=== PATIENT | female | born 1980 | race Caucasian/White ===

== ENCOUNTER 2024-12-23 11:34 | Emergency (ER) | payer MEDICAID, SELFPAY ==
[2024-12-23 11:52] VITALS: BP 159/98; PULSE 102; RESP 18; TEMP 37.1; O2SAT 98; BMI 31.7
--- NOTE | 2024-12-23 12:02 | EDRME_ITS ---
Rapid Medical Screening Exam [facility] Arrival date/time: 12/23/24 11:34 44-year-old female who is homeless presents to the emergency department today for complaints of frothy urine. Patient reports no fever nausea vomiting. Patient reports that she is diabetic but does not take any of her medication currently blood sugar is 410 Chief Complaint: Urogenital-Female Time Seen by Provider: 12/23/24 11:55 Vital signs: Vital Signs Temperature 98.8 F 12/23/24 11:52 Pulse Rate 102 H 12/23/24 11:52 Respiratory Rate 18 12/23/24 11:52 Blood Pressure 159/98 H 12/23/24 11:52 Pulse Oximetry (%) 98 12/23/24 11:52 Oxygen Delivery Method Room Air 12/23/24 11:52
[2024-12-23 12:26] LABS: Base Excess, Venous 0 (-3-3); O2 Saturation, Venous 81 % (96-97); PCO2, Venous 37 mmHg (36-56); PO2, Venous 41 mmHg (15-58); pH, Venous 7.42 (7.33-7.66)
[2024-12-23 12:29] LABS: Basophils # (Auto) 0.1 Thou/mm3 (0.0-0.2); Basophils % (Auto) 1 % (0-2.5); Eosinophils # (Auto) 0.3 Thou/mm3 (0.0-0.5); Eosinophils % (Auto) 2 % (0-10); Hematocrit 39.1 % (36.0-46.0); Hemoglobin 13.4 g/dL (12.0-16.0); Immature Granulocytes % (Auto) 0 % (0-0); Immature Granulocytes Auto 0.05 Thou/mm3 (0.00-0.00); Lymphocytes # (Auto) 3.4 Thou/mm3 (1.0-4.8); Lymphocytes % (Auto) 27 % (10-50); Mean Corpuscular HGB Conc 34.3 g/dl (31.0-37.0); Mean Corpuscular Hemoglobin 28.7 pg (25.0-35.0); Mean Corpuscular Volume 84 fL (80-100); Monocytes # (Auto) 0.6 Thou/mm3 (0.0-0.8); Monocytes % (Auto) 5 % (0-12); Neutrophils % (Auto) 65 % (37-80); Nucleated Red Blood Cell % 0 /100 WBC (0); Platelet Count 353 Thou/mm3 (140-440); RDW Standard Deviation 42.3 fL (36.4-46.3); Red Blood Count 4.67 Miln/mm3 (4.00-5.20); White Blood Count 12.4 Thou/mm3 (3.6-11.0)
[2024-12-23 12:39] LABS: Glucose Estimated Average 335 mg/dL (80-131); Hemoglobin A1C 13.3 % Hgb (4.8-6.0)
[2024-12-23 12:53] LABS: Alanine Aminotransferase 18 U/L (10-49); Albumin, Serum 3.5 gm/dL (3.5-5.0); Albumin/Globulin Ratio 1.2 (1.2-2.2); Alkaline Phosphatase 166 U/L (46-116); Anion Gap 8 (7-16); Aspartate Amino Transferase 12 U/L (0-34); BUN/Creatinine Ratio 9 Ratio (12-20); Bilirubin,Total 0.3 mg/dL (0.3-1.2); Blood Urea Nitrogen 13 mg/dL (9-23); Calcium 9.1 mg/dL (8.3-10.6); Calcium (Corrected) 9.5 mg/dL (8.5-10.1); Chloride 100 mMol/L (98-107); Creatinine (Component) 1.4 mg/dL (0.6-1.3); Estimated Creatinine Clearance 52.6 mL/min (>60); Globulin 2.9 gm/dL (2.3-3.5); Glucose 399 mg/dL (74-106); Osmolality,Calculated 285 (275-295); Potassium 4.2 mMol/L (3.4-5.1); Sodium 134 mMol/L (136-145); Total Protein 6.4 gm/dL (5.7-8.2); eGFR 47 See Note
[2024-12-23 13:38] LABS: Collection Type, Urine Clean Catch
[2024-12-23 13:59] LABS: Bacteria,Urine 1+; Bilirubin,Urine Negative (Negative); Blood,Urine Trace (Negative); Clarity,Urine Clear (Clear/Hazy); Color,Urine Colorless (Lt Yel-Yel); Glucose, Urine 4+ (Negative); Ketones,Urine Negative (Negative); Leukocyte Esterase,Urine Positive (Negative); Nitrite,Urine Positive (Negative); Protein,Urine 1+ (Neg - Trace); RBC,Urine 11 /hpf (0-3); Specific Gravity,Urine 1.019 (1.001-1.035); Squamous Epithelial Cell,Urine < 1 /hpf (0-5); Urobilinogen,Urine Negative mg/dL (0.0-1.0); WBC,Urine 10 /hpf (0-5)
[2024-12-23 14:10] LABS: Culture Indicated,Urine Yes
[2024-12-23 14:13] LABS: Amphetamine/Methamp Scrn,U Positive (Negative); Barbiturate Screen,Urine Negative (Negative); Benzodiazepines Screen,Urine Negative (Negative); Benzoylecgonine Screen, Ur Negative (Negative); Fentanyl Screen,Urine Negative (Negative); Opiate Screen,Urine Negative (Negative); THC Screen,Urine Negative (Negative)
--- NOTE | 2024-12-23 16:32 | PD.EDFMALE ---
ED Female Urogenital RME/HPI General Chief complaint: Urogenital-Female Stated complaint: Foam in urine, tired Time Seen by Provider: 12/23/24 11:55 Arrival date/time: 12/23/24 11:34 RME / HPI RME / HPI Narrative: 44-year-old female who is homeless presents to the emergency department today for complaints of frothy urine. Patient reports no fever nausea vomiting. Patient reports that she is diabetic but does not take any of her medication currently blood sugar is 410. Patient denies any vomiting denies any other complaints. Related Data Previous Rx's ?Medication ?Instructions ?Recorded atorvastatin 40 mg tablet 40 mg PO HS cholesterol 30 days 11/17/23 #30 tabs blood-glucose sensor (FreeStyle #2 ea 11/17/23 Tanya 3 Sensor device) blood-glucose,yarn weight and strength tester,cont #2 ea 11/17/23 (FreeStyle Tanya 3 [place]) insulin degludec 100 unit/mL (3 30 unit (0.3 mL) subcut QPM type 2 11/17/23 mL) subcutaneous pen (Tresiba diabetes #15 mL FlexTouch U-100 insulin) levothyroxine 125 mcg capsule 125 mcg PO ACBR hypothyroidism 30 11/17/23 days #30 caps losartan 50 mg tablet 50 mg PO QDAY high blood pressure 11/17/23 30 days #30 tabs melatonin 3 mg tablet 3 mg PO HS sleep 1 month #30 tabs 11/17/23 nicotine 7 mg/24 hr daily 7 mg topical DAILY PRN Nicotine 11/17/23 transdermal patch withdrawal #14 ea pen needle, diabetic 31 gauge x #100 ea 11/17/23/ (Comfort EZ Pen [place]) cephalexin 500 mg capsule 500 mg PO Q8H 7 days #21 caps 12/23/24 metformin 500 mg tablet 500 mg PO BIDWMEAL #60 tabs 12/23/24 Allergies Allergy/AdvReac Type Severity Reaction Status Date / Time No Known Allergies Allergy Verified 12/23/24 11:37 Review of Systems Review of Systems Narrative Review of Systems: Review of system reviewed and within normal limits except mentioned in HPI ED Exam Narrative Physical exam: VITAL SIGNS: Reviewed. GENERAL APPEARANCE: Alert and interactive, follows commands, no acute distress, HEAD AND FACE: Non-traumatic. ENT: PERRL, pink conjunctivitis, eyelid no trauma, Mucous membrane moist. NECK: Supple, nontender, no nuchal rigidity. CHEST: No tenderness, no crepitus, no paradoxical movement, no retractions. LUNGS: Clear, well ventilated, symmetric, no rales, no wheezing, no ronchi, no stridor, good breath sounds bilaterally. HEART: Regular rate, regular rhythm, no murmur, no gallops. ABDOMEN: Soft, positive bowel sounds, nondistended, no guarding, nontender, no rebound, no masses, RECTAL: Deferred. GENITAL: Deferred. NEUROLOGICAL: Gross motor function intact sensory function intact, Appropriate for age. MUSCULOSKELETAL: low back nontender, full range of motion. EXTREMITIES: Nontender, full range of motion. SKIN: Color pink, dry, no rash, no lacerations, no abrasions, no contusions. LYMPHATICS: Deferred. Course Quality Measures none Orders Category Date Time Status A1C [Glycohemoglobin w (eAG)] Stat Lab 12/23/24 12:12 Completed CBC Stat Lab 12/23/24 12:12 Completed CMP [Comprehensive Metabolic Panel] Stat Lab 12/23/24 12:12 Completed Drug Screen,Urine Stat Lab 12/23/24 13:28 Completed UA, C/S IF [Urinalysis, C/S if Indicated] Stat Lab 12/23/24 13:28 Completed Urine Culture Stat Lab 12/23/24 13:28 Received VBG [Venous Blood Gas] Stat Lab 12/23/24 12:12 Completed cefTRIAXone [Rocephin] 1,000 mg Med 12/23/24 16:25 Discontinued Lidocaine 1% 20 ml [Xylocaine 1% 20 ML] 2.1 ml IM X1 Vital Signs Vital signs: Vital Signs Temperature 98.8 F 12/23/24 11:52 Pulse Rate 102 H 12/23/24 11:52 Respiratory Rate 18 12/23/24 11:52 Blood Pressure 159/98 H 12/23/24 11:52 Pulse Oximetry (%) 98 12/23/24 11:52 Oxygen Delivery Method Room Air 12/23/24 11:52 Urogenital - Female MDM Narrative MDM Narrative:: 44-year-old female who is homeless presents to the emergency department today for complaints of frothy urine. Patient reports no fever nausea vomiting. Patient reports that she is diabetic but does not take any of her medication currently blood sugar is 410. Patient denies any vomiting denies any other complaints. Patient urinalysis positive for UTI. Patient's blood sugar was noted to be 329 with no sign of diabetic ketoacidosis. Patient was sent home on metformin. Patient was also sent home on Keflex. Patient is tolerating p.o. fluids. Patient data External records reviewed:: None Clinical information provided by:: patient Social determinants that could affect healthcare access:: none Patient has the following chronic illnesses:: Diabetes mellitus How is presenting disease/condition affected by chronic disease/condition?: exacerbated by Evaluation data The following diagnostics were reviewed and interpreted by me:: lab results Lab and/or radiology exams considered but not ordered:: None Interpretation Summary: See results MDM Medications / Prescriptions Medications or Prescriptions considered but not ordered:: None Medication administrations:: Medication Administration History Discontinued Medications Ceftriaxone Sodium 1,000 mg/ (Lidocaine HCl 2.1 ml) 0 mg IM X1 ONE Stop: 12/23/24 16:26 Last Admin: 12/23/24 17:28 Dose: 1,000 mg Documented By: Ceftriaxone IM Consultations Consultation(s) initiated? (list below): No Diagnosis Urogenital Female Differential Diagnosis: urinary tract infection and other (Hyperglycemia, poor medication compliance) Most likely diagnosis given after review of the tests above:: Hyperglycemia poor medication compliance, UTI Admission Indicated Admission indicated?: not indicated Admission Request Was there a request for admission?: No Disposition Plan Disposition Plan: Discharge Discharge Attestation Discharge Attestation: The patient and all family members were given an opportunity to ask questions and understood the discharge instructions. Discharge instructions specifically effects, indications for sooner follow up or return to the emergency department, and the expected course of current diagnosis. Patient condition: Stable Discharge Plan Plan Patient Disposition: HOME (Self Care) Discharge Disposition comment: Stable Prescriptions/Referrals Prescriptions/Med Rec: New cephalexin 500 mg capsule 500 mg PO Q8H 7 Days Qty: 21 0RF metformin 500 mg tablet 500 mg PO BIDWMEAL Qty: 60 0RF No Action atorvastatin 40 mg tablet 40 mg PO HS 30 Days Qty: 30 3RF losartan 50 mg tablet 50 mg PO QDAY 30 Days Qty: 30 3RF melatonin 3 mg Tablet 3 mg PO HS 30 Days Qty: 30 3RF levothyroxine 125 mcg capsule 125 mcg PO ACBR 30 Days Qty: 30 3RF nicotine 7 mg/24 hr patch 24 hour 7 mg topical DAILY PRN (Reason: Nicotine withdrawal) Qty: 14 3RF insulin degludec [Tresiba FlexTouch U-100] 100 unit/mL (3 mL) insulin pen 30 unit subcut QPM Qty: 15 3RF (DME) FreeStyle Tanya 3 Sensor Device See Rx Instructions .Route Qty: 2 3RF Rx Instructions: As directed (DME) FreeStyle Tanya 3 [place] Misc See Rx Instructions .Route Qty: 2 3RF Rx Instructions: As directed (DME) pen needle, diabetic [Comfort EZ Pen [place]] 31 gauge x 1/4 needle See Rx Instructions .Route Qty: 100 2RF Rx Instructions: As directed Referrals: Yvan Velazquez MD [Primary Care Provider] - In 1 week Problem List Clinical Impression: Urinary tract infection, Hyperglycemia due to type 2 diabetes mellitus Patient/Caregiver Discharge Instructions Discharge Activity: activity as tolerated Education Materials: How to Check Your Blood Sugar Additional Instructions: Thank you for the opportunity for serving you today. You are stable for discharged . You are advised to: Follow-up with your PCP in 1 to 2 days Return to ED for worsening of symptoms Increase oral fluids Take medication as prescribed Print Language: Estonian Stand Alone Forms: Trinh Award Info., Patient Portal Info Letter PA/QUINN Supervising Physician VAHE/QUINN Supervising Physician: Dr Cheng
[2024-12-23] MEDS: cefTRIAXone 1,000 MG, LIDOCAINE 1% 20 ML 2.1 ML IM (17:28)
== END 2024-12-23 18:23 | disposition home or self-care (01) ==
PROVIDERS: Nurse Practitioner Primary Care; Emergency Provider Emergency Medicine; PCP Family Medicine
DX: N39.0 Urinary tract infection, site not specified (principal); E11.65 Type 2 diabetes mellitus with hyperglycemia; Z59.00 Homelessness unspecified; Z79.84 Long term (current) use of oral hypoglycemic drugs; Z79.4 Long term (current) use of insulin
CPT/HCPCS: 36415; 80053; 80307; 81001; 82803; 83036; 85025; 87086; 96372; 99283; J0696; J3490

== ENCOUNTER 2025-01-29 23:02 | Emergency (ER) | payer MEDICAID, SELFPAY ==
[2025-01-29 23:04] VITALS: BMI 29.2
[2025-01-29 23:06] VITALS: BP 144/94; PULSE 113; RESP 18; TEMP 37.2; O2SAT 97
[2025-01-30] VITALS (8 sets, daily range): BP systolic 139–154; BP diastolic 76–99; PULSE 72–104; RESP 16–18; TEMP 36.6–37.1; O2SAT 96–98
--- NOTE | 2025-01-30 03:58 | XR_ITS ---
Examination: CT pelvis with intravenous contrast. 2-D sagittal and coronal reconstructions. Date and time of exam:January 30, 2025, 0619 hours INDICATIONS: Insect bite to the right buttock region with redness swelling and pain today CTDI: vol (mGy) :7.12. DLP: (mGycm) : 254. Technique: Multiple 3 mm axial sections of the pelvis have been obtained with the 64 slice high resolution scanner. 2-D sagittal and coronal reconstructions. Intravenous administration 30 cc Isovue 370 Low dose protocols were performed. One or more of the following dose reduction techniques were used; automated exposure control, adjustment of the mA and/or KV according to patient size, use of iterative reconstruction technique. Findings: Normal appendix No bowel obstruction No diverticulitis Urinary bladder intact Absent uterus Advanced disc narrowing L5-S1 Cellulitis pattern in the buttock and perineal region bilaterally with no perianal or buttock abscess Negative for osteomyelitis IMPRESSION: Cellulitis in the buttock and perianal perineal region bilaterally with no abscess
--- NOTE | 2025-01-30 04:02 | PD.EDRME ---
Rapid Medical Screening Exam [facility] Arrival date/time: 01/29/25 23:02 Chief Complaint: Skin/Abscess/Foreign Body Time Seen by Provider: 01/30/25 02:08 Vital signs: Vital Signs Temperature 99 F 01/29/25 23:06 Pulse Rate 113 H 01/29/25 23:06 Respiratory Rate 18 01/29/25 23:06 Blood Pressure 144/94 H 01/29/25 23:06 Pulse Oximetry (%) 97 01/29/25 23:06 Oxygen Delivery Method Room Air 01/29/25 23:06 Vital signs reviewed by provider: Yes RME Narrative: 44-year-old female with past medical history of diabetes, hypertension and hyperlipidemia presents to the ED with a complaint of right buttocks spider bite . She denies any fever or chills, nausea or vomiting, diarrhea or abdominal pain. She states her last bowel movement was approximately 4 days ago which is typical for her. I have greeted and performed a focused initial assessment of this patient. A comprehensive ED assessment and evaluation of the patient, analysis of all test results, and completion of the medical decision making process will be conducted by additional ED providers.
[2025-01-30 04:56] LABS: Lactate (Lactic Acid) 1.7 mMol/L (0.4-2.0)
[2025-01-30 04:58] LABS: Basophils # (Auto) 0.1 Thou/mm3 (0.0-0.2); Basophils % (Auto) 1 % (0-2.5); Eosinophils # (Auto) 0.4 Thou/mm3 (0.0-0.5); Eosinophils % (Auto) 2 % (0-10); Hematocrit 42.0 % (36.0-46.0); Hemoglobin 14.7 g/dL (12.0-16.0); Immature Granulocytes Auto 0.09 Thou/mm3 (0.00-0.00); Lymphocytes # (Auto) 3.1 Thou/mm3 (1.0-4.8); Lymphocytes % (Auto) 20 % (10-50); Mean Corpuscular HGB Conc 35.0 g/dl (31.0-37.0); Mean Corpuscular Hemoglobin 29.5 pg (25.0-35.0); Mean Corpuscular Volume 84 fL (80-100); Monocytes # (Auto) 1.0 Thou/mm3 (0.0-0.8); Monocytes % (Auto) 6 % (0-12); Neutrophils # (Auto) 10.7 Thou/mm3 (1.8-7.7); Neutrophils % (Auto) 70 % (37-80); Nucleated Red Blood Cell # 0.00 Thou/mm3 (0.00-0.00); Nucleated Red Blood Cell % 0 /100 WBC (0); Platelet Count 349 Thou/mm3 (140-440); RDW Standard Deviation 41.2 fL (36.4-46.3); Red Blood Count 4.99 Miln/mm3 (4.00-5.20); White Blood Count 15.3 Thou/mm3 (3.6-11.0)
[2025-01-30 05:28] LABS: Alanine Aminotransferase 22 U/L (10-49); Albumin, Serum 3.8 gm/dL (3.5-5.0); Albumin/Globulin Ratio 1.1 (1.2-2.2); Alkaline Phosphatase 168 U/L (46-116); Anion Gap 13 (7-16); Aspartate Amino Transferase 12 U/L (0-34); BUN/Creatinine Ratio 11 Ratio (12-20); Bilirubin,Total 0.3 mg/dL (0.3-1.2); Blood Urea Nitrogen 18 mg/dL (9-23); C-Reactive Protein 8.6 mg/dL (0.0-0.9); Calcium 9.3 mg/dL (8.3-10.6); Calcium (Corrected) 9.5 mg/dL (8.5-10.1); Carbon Dioxide 23.9 mMol/L (20.0-31.0); Chloride 98 mMol/L (98-107); Creatinine (Component) 1.6 mg/dL (0.6-1.3); Estimated Creatinine Clearance 44.2 mL/min (>60); Globulin 3.4 gm/dL (2.3-3.5); Glucose 369 mg/dL (74-106); Osmolality,Calculated 287 (275-295); Potassium 2.8 mMol/L (3.4-5.1); Procalcitonin 0.07 ng/ml (0.0-0.49); Sodium 135 mMol/L (136-145); Total Protein 7.2 gm/dL (5.7-8.2); eGFR 40 See Note
--- NOTE | 2025-01-30 06:50 | PD.EDSKIN ---
ED Skin Abcess FB-RME/HPI General Chief complaint: Skin/Abscess/Foreign Body Stated complaint: INSECT BITE TO RIGHT BUTTOCK Time Seen by Provider: 01/30/25 02:08 Arrival date/time: 01/29/25 23:02 RME / HPI RME / HPI narrative: 44-year-old female with past medical history of diabetes, hypertension and hyperlipidemia presents to the ED with a complaint of right buttocks spider bite . She denies any fever or chills, nausea or vomiting, diarrhea or abdominal pain. She states her last bowel movement was approximately 4 days ago which is typical for her. I have greeted and performed a focused initial assessment of this patient. A comprehensive ED assessment and evaluation of the patient, analysis of all test results, and completion of the medical decision making process will be conducted by additional ED providers. DR. YOUNG MAIN ED EVALUATION: 44-year-old female presents to the Emergency Department with complaint of multiple abscesses in the buttocks area associated with pain. She denies fevers, chills, nausea, vomiting, abdominal pain, or other symptoms. No known allergies. PMHx: Hypertension, hyperlipidemia, type 2 diabetes mellitus (most recent A1c 13.3% in November 2023), hypothyroidism, asthma, and polysubstance dependence (including methamphetamine, THC), and a 27 pack-year tobacco smoking history. Related Data Previous Rx's ?Medication ?Instructions ?Recorded atorvastatin 40 mg tablet 40 mg PO HS cholesterol 30 days 11/17/23 #30 tabs blood-glucose sensor (FreeStyle #2 ea 11/17/23 Tanya 3 Sensor device) blood-glucose,seat pack inspector,cont #2 ea 11/17/23 (FreeStyle Tanya 3 [place]) insulin degludec 100 unit/mL (3 30 unit (0.3 mL) subcut QPM type 2 11/17/23 mL) subcutaneous pen (Tresiba diabetes #15 mL FlexTouch U-100 insulin) levothyroxine 125 mcg capsule 125 mcg PO ACBR hypothyroidism 30 11/17/23 days #30 caps losartan 50 mg tablet 50 mg PO QDAY high blood pressure 11/17/23 30 days #30 tabs melatonin 3 mg tablet 3 mg PO HS sleep 1 month #30 tabs 11/17/23 nicotine 7 mg/24 hr daily 7 mg topical DAILY PRN Nicotine 05/14/24 transdermal patch withdrawal #14 ea pen needle, diabetic 31 gauge x #100 ea 11/17/23 1/ (Comfort EZ Pen [place]) metformin 500 mg tablet 500 mg PO BIDWMEAL #60 tabs 12/23/24 ibuprofen 600 mg tablet 600 mg PO Q6H PRN pain #30 tabs 01/30/25 sulfamethoxazole 800 1 tab PO BID #20 tabs 01/30/25 mg-trimethoprim 160 mg tablet (Bactrim DS) Allergies Allergy/AdvReac Type Severity Reaction Status Date / Time No Known Allergies Allergy Verified 01/29/25 23:03 Review of Systems Review of Systems Systems Reviewed: All systems reviewed, normal except as documented Past Medical History Past Medical History CARDIAC: Positive Hypertension RESPIRATORY: Positive Asthma ENDOCRINE: Positive Diabetes Mellitus Type 2 and Hypothyroidism Surgical History SURGICAL: Positive Hysterectomy and Section Social History SMOKING STATUS: Current every day smoker SUBSTANCE USE: marijuana and methamphetamine ED Exam Narrative Physical exam: GENERAL APPEARANCE: alert and oriented x 4, well-developed, well-nourished, no acute distress VITALS: All vitals were reviewed and the pulse ox is 96% on room air, which is normal according to my interpretation. HEENT: Normocephalic, atraumatic; pupils equal, round, reactive to light; EOMI; mucous membranes pink, moist; oropharynx clear NECK: Supple LUNGS: CTABL; no wheezes, no rales, no rhonchi HEART: Regular rate, regular rhythm; normal S1, S2; no murmurs ABDOMEN: non distended; normal BS; soft, no tenderness, no guarding, no rebound; no masses, no organomegaly, no hernia BACK: no CVA tenderness EXTREMITIES: atraumatic; no edema NEUROLOGIC: awake; alert and oriented x4; cranial nerves II-XII grossly intact; no focal sensory or motor deficits PSYCHIATRIC: appropriate mood and affect SKIN: warm, dry; no rashes; there is a 2 cm abscess on the right upper gluteal cleft buttocks, there is a 1 cm abscess on the left upper gluteal cleft buttocks, there is a 1 cm abscess on the right mid gluteal cleft buttocks, there is a 0.5 cm abscess on the left lower gluteal cleft buttocks; all abscesses have surrounding erythema, tenderness on palpation, and none are currently draining. Course Quality Measures none Orders Category Date Time Status CT Screening NOW Care 01/30/25 03:[address] Screening X1 Care 01/30/25 03:58 Active Insert IV NOW Care 01/30/25 04:01 Active Referral Wound Care Stat Cons 01/30/25 11:[address] pelvis w con Stat Exams 01/30/25 03:58 Completed Blood Culture (Lab) Stat Lab 01/30/25 04:38 Received CBC Stat Lab 01/30/25 04:46 Completed CMP [Comprehensive Metabolic Panel] Stat Lab 01/30/25 04:46 Completed CRP [C-Reactive Protein] Stat Lab 01/30/25 04:46 Completed Lactic Acid [Lactate (Lactic Acid)] Stat Lab 01/30/25 04:46 Completed Procalcitonin Stat Lab 01/30/25 04:46 Completed Morphine Inj Med 01/30/25 09:25 Discontinued 5 mg IVP X1 ONE Ondansetron Inj [Zofran Inj] Med 01/30/25 09:25 Discontinued 4 mg IVP X1 ONE Piper/Tazo 3.375 gm Premix [Zosyn] Med 01/30/25 09:27 Discontinued 3.375 gm in 50 ml IV X1 Vital Signs Vital signs: Vital Signs Temperature 99 F 01/29/25 23:06 Pulse Rate 113 H 01/29/25 23:06 Respiratory Rate 18 01/29/25 23:06 Blood Pressure 144/94 H 01/29/25 23:06 Pulse Oximetry (%) 97 01/29/25 23:06 Oxygen Delivery Method Room Air 01/29/25 23:06 Skin / Abscess / Foreign Body MDM Narrative MDM Narrative:: ISydni am scribing for and in the presence of Dr. Young. Patient data External records reviewed:: [facility] previous records Clinical information provided by:: patient Social determinants that could affect healthcare access:: substance use (polysubstance dependence (methamphetamine, THC)) Patient has the following chronic illnesses:: Hypertension, hyperlipidemia, type 2 diabetes mellitus (most recent A1c 13.3% in November 2023), hypothyroidism, asthma, and polysubstance dependence (including methamphetamine, THC), and a 27 pack-year tobacco smoking history. No known allergies. How is presenting disease/condition affected by chronic disease/condition?: uneffected by Evaluation data The following diagnostics were reviewed and interpreted by me:: lab results and radiology exam(s) Lab and/or radiology exams considered but not ordered:: none Interpretation Summary: Procedure(s): CT pelvis w con Accession Number(s): [id number] cc: Yvan Velazquez MD; Alex Kwok MD; Julia Mccormick PA-C~ Examination: CT pelvis with intravenous contrast. 2-D sagittal and coronal reconstructions. Date and time of exam:January 30, 2025, 0619 hours INDICATIONS: Insect bite to the right buttock region with redness swelling and pain today CTDI: vol (mGy) :7.12. DLP: (mGycm) : 254. Technique: Multiple 3 mm axial sections of the pelvis have been obtained with the 64 slice high resolution scanner. 2-D sagittal and coronal reconstructions. Intravenous administration 30 cc Isovue 370 Low dose protocols were performed. One or more of the following dose reduction techniques were used; automated exposure control, adjustment of the mA and/or KV according to patient size, use of iterative reconstruction technique. Findings: Normal appendix No bowel obstruction No diverticulitis Urinary bladder intact Absent uterus Advanced disc narrowing L5-S1 Cellulitis pattern in the buttock and perineal region bilaterally with no perianal or buttock abscess Negative for osteomyelitis IMPRESSION: Cellulitis in the buttock and perianal perineal region bilaterally with no abscess Dictated By: Alex Kwok MD Medications / Prescriptions Medications or Prescriptions considered but not ordered:: none Medication administrations:: Medication Administration History Discontinued Medications Piperacillin/Tazobactam/Dextrose (Zosyn) 3.375 gm in 50 mls @ 100 mls/hr IV X1 ONE Stop: 01/30/25 09:56 Last Infusion: 01/30/25 10:22 Dose: Infused Documented By: Admin: 01/30/25 09:42 Dose: 100 mls/hr Documented By: STELLA Morphine Sulfate (Morphine Sulf Inj 10 Mg/Ml Vial) 5 mg IVP X1 ONE Stop: 01/30/25 09:26 Last Admin: 01/30/25 09:38 Dose: 5 mg Documented By: STELLA Ondansetron HCl (Ondansetron Inj 2 Mg/Ml Inj 2 Ml) 4 mg IVP X1 ONE Stop: 01/30/25 09:26 Last Admin: 01/30/25 09:38 Dose: 4 mg Documented By: STELLA see above if any Consultations Consultation(s) initiated? (list below): Yes Consultation #1 (Physician, Specialty, Details): Discussed test HPI, PMHx, lab, radiology results and/or management with Dr. Patino. Dr. Patino will follow up with patient on Thursday02/01/25 for outpatient care. Time: 12:00 Diagnosis Skin/Abscess Differential Diagnosis: abscess of skin or subcutaneous tissue, cellulitis and other (skin and soft tissue infection (SSTI), recurrent furunculosis, and MRSA abscesses) Most likely diagnosis given after review of the tests above:: Abscess Admission Indicated Admission indicated?: not indicated Admission Request Was there a request for admission?: No Disposition Plan Disposition Plan: Discharge Discharge Attestation Discharge Attestation: The patient and all family members were given an opportunity to ask questions and understood the discharge instructions. Discharge instructions specifically effects, indications for sooner follow up or return to the emergency department, and the expected course of current diagnosis. Patient condition: Stable Discharge Plan Plan Patient Disposition: HOME (Self Care) Prescriptions/Referrals Prescriptions/Med Rec: New sulfamethoxazole-trimethoprim [Bactrim DS] 800-160 mg tablet 1 tab PO BID Qty: 20 0RF ibuprofen 600 mg tablet 600 mg PO Q6H PRN (Reason: pain) Qty: 30 0RF No Action metformin 500 mg tablet 500 mg PO BIDWMEAL Qty: 60 0RF atorvastatin 40 mg tablet 40 mg PO HS 30 Days Qty: 30 3RF losartan 50 mg tablet 50 mg PO QDAY 30 Days Qty: 30 3RF melatonin 3 mg Tablet 3 mg PO HS 30 Days Qty: 30 3RF levothyroxine 125 mcg capsule 125 mcg PO ACBR 30 Days Qty: 30 3RF nicotine 7 mg/24 hr patch 24 hour 7 mg topical DAILY PRN (Reason: Nicotine withdrawal) Qty: 14 3RF insulin degludec [Tresiba FlexTouch U-100] 100 unit/mL (3 mL) insulin pen 30 unit subcut QPM Qty: 15 3RF (DME) FreeStyle Tanya 3 Sensor Device See Rx Instructions .Route Qty: 2 3RF Rx Instructions: As directed (DME) FreeStyle Tanya 3 [place] Misc See Rx Instructions .Route Qty: 2 3RF Rx Instructions: As directed (DME) pen needle, diabetic [Comfort EZ Pen [place]] 31 gauge x 1/4 needle See Rx Instructions .Route Qty: 100 2RF Rx Instructions: As directed Referrals: Yvan Velazquez MD [Primary Care Provider] - In 1 week Concetta Patino MD [Physician] - 02/01/25 Problem List Clinical Impression: Cellulitis and abscess of buttock Patient/Caregiver Discharge Instructions Education Materials: ED Abscess Antibiotic ... Additional Instructions: Follow up with Dr. Patino on Thursday02/01/25. Call office for appointment time. Print Language: Belarusian Stand Alone Forms: Trinh Award Info., Patient Portal Info Letter
[2025-01-30] MEDS: ONDANSETRON INJ 2 MG/ML INJ 2 ML 4 MG IVP (09:38)
[2025-01-30] MEDS: MORPHINE SULF INJ 10 MG/ML VIAL 5 MG IVP (09:38)
[2025-01-30] MEDS: PIPER/TAZO 3.375 GM PREMIX 3.375 GM/50 ML BAG IV (09:42)
--- NOTE | 2025-01-30 11:18 | PC.NURSE ---
social work program coordinator in room to give resources due to homelesness
--- NOTE | 2025-01-30 12:32 | PC.NURSE ---
Dr. You in pt room to assess patient
== END 2025-01-30 13:28 | disposition home or self-care (01) ==
PROVIDERS: Physician Assistant; Emergency Provider Emergency Medicine; PCP Family Medicine
DX: T63.301A Toxic effect of unspecified spider venom, accidental (unintentional), initial encounter (principal); L02.31 Cutaneous abscess of buttock; L03.317 Cellulitis of buttock
CPT/HCPCS: 36415; 72193; 80053; 83605; 84145; 85025; 86140; 87040; 96365; 96375; 99283; A4649; J2270; J2405; J2543; Q9967